=== PATIENT | female | born 2000 | race Two or more races ===

== ENCOUNTER 2019-11-22 03:02 | Emergency (ER) | payer OTHER ==
[2019-11-22] MEDS ORDERED: DIPHENHYDRAMINE HCL 25 MG CAPSULE PO ONE (04:33)
[2019-11-22] MEDS ORDERED: PROMETHAZINE HCL 25 MG TABLET PO ONE (04:33)
--- NOTE | 2019-11-22 04:49 | ER Document Report ---
ED General - General Chief Complaint: Headache Stated Complaint: NAUSEA/VOMITING/FEVER Time Seen by Provider: 11/22/19 04:04 Primary Care Provider: [facility] [Provider Group] - Follow up tomorrow TAHIR ALLEN DO [Primary Care Provider] - Follow up as needed Mode of Arrival: Ambulatory Information source: Patient Notes: Patient presents complaining of numerous complaints that she has been having off and on for the past 2 years. Patient states she got tired of her symptoms and feels like her primary doctor is not addressing them. [place] is [place] Patient complains of headache, nausea,, urinary frequency. Patient states she gets frequent UTIs as well as frequent yeast infections. Patient states that she has had some chest pressure. Patient denies any cough or cold symptoms. Patient reports headache pain as well that she has had for several months. Patient states that she has seen a obstetrics/gynecology nurse and had a heart monitor placed. Patient states she has gone to the communication center operator for evaluation of her frequent UTIs and yeast infections. Patient also states that she is had a brain MRI in June of this year for her headaches. Patient states that whenever she sees her doctor although I tell her is that she has depression but patient disagrees with this. Patient is not currently on any medications at this time. Whenever patient was asked what symptoms prompted her visit tonight patient states that she does not feel like her doctor is addressing her issues. TRAVEL OUTSIDE OF THE [place] IN LAST 30 DAYS: No - HPI Onset: Other - 2 years Onset/Duration: Persistent Quality of pain: Achy Pain Level: 4 Associated symptoms: Chest pain, Headache. denies: Nonproductive cough, Productive cough, Fever, Sore throat Exacerbated by: Denies Relieved by: Denies Similar symptoms previously: Yes Recently seen / treated by doctor: No - Related Data Allergies/Adverse Reactions: No Known Allergies Allergy (Verified 11/22/19 04:08) Past Medical History - General Information source: Patient - Social History Smoking Status: Never Smoker Chew tobacco use (# tins/day): No Frequency of alcohol use: None Drug Abuse: None Occupation: Active duty Lives with: Spouse/Significant other Family History: Reviewed & Not Pertinent Psychiatric Medical History: Reports: Hx Depression Past Surgical History: Reports: Hx Orthopedic Surgery Review of Systems - Review of Systems Constitutional: No symptoms reported EENT: No symptoms reported Cardiovascular: Chest pain. denies: Palpitations Respiratory: No symptoms reported. denies: Cough, Short of breath Gastrointestinal: Nausea. denies: Abdominal pain, Vomiting Genitourinary: Frequency Female Genitourinary: No symptoms reported Musculoskeletal: No symptoms reported Skin: No symptoms reported Hematologic/Lymphatic: No symptoms reported Neurological/Psychological: Headaches. denies: Weakness Physical Exam - Vital signs Vitals: Temp Pulse Resp BP Pulse Ox 97.9 F 65 17 103/62 100 11/22/19 04:32 11/22/19 04:32 11/22/19 04:32 11/22/19 04:32 11/22/19 04:32 - General General appearance: Appears well, Alert In distress: None - HEENT Head: Normocephalic, Atraumatic Eyes: Normal Conjunctiva: Normal Nasal: Normal Mouth/Lips: Normal Neck: Normal, Supple. No: Meningismus - Respiratory Respiratory status: No respiratory distress Chest status: Tender Breath sounds: Normal Chest palpation: Tender - Cardiovascular Rhythm: Regular Heart sounds: S1 appreciated, S2 appreciated Murmur: No - Abdominal Inspection: Normal Distension: No distension Bowel sounds: Normal Tenderness: Nontender Organomegaly: No organomegaly - Back Back: Normal, Nontender. No: CVA tenderness - Extremities General upper extremity: Normal inspection, Normal ROM General lower extremity: Normal inspection, Normal ROM - Neurological Neuro grossly intact: Yes Cognition: Normal Karthikeyan Coma Scale Eye Opening: Spontaneous [place] Coma Scale Verbal: Oriented Karthikeyan Coma Scale Motor: Obeys Commands [place] Coma Scale Total: 15 - Psychological Associated symptoms: Normal affect, Normal mood - Skin Skin Temperature: Warm Skin Moisture: Dry Skin Color: Normal Course - Re-evaluation Re-evalutation: 11/22/19 06:45 Patient with out any acute findings on her diagnostic evaluation aside from nitrite positive urinalysis. Will culture urine and start patient on antibiotic given the fact that she does have some urinary frequency symptoms. Patient reports headache pain and nausea are improved at this time. Patient encouraged to see her primary doctor for recheck and for any referrals to specialist for second opinions. The patient presents with headache without signs of BOILER CLEANER bleed, stroke, infection, or other serious etiology. The patient is neurologically intact. Given the extremely low risk of these diagnoses further testing and evaluation for these possibilities does not appear to be indicated at this time. The patient has been instructed to return if the symptoms worsen or change in any way. - Vital Signs Vital signs: Temp Pulse Resp BP Pulse Ox 98.0 F 64 17 118/78 98 11/22/19 06:47 11/22/19 06:47 11/22/19 06:47 11/22/19 06:47 11/22/19 06:47 - Laboratory Result Diagrams: 11/22/19 04:55 11/22/19 04:55 Laboratory results interpreted by me: 11/22/19 11/22/19 04:55 04:55 Sodium 135.8 L Urine Protein 30 H Urine Nitrite POSITIVE H Urine Urobilinogen 4.0 H Labs- All tests 24 hr 11/22/19 11/22/19 11/22/19 04:55 04:55 04:55 WBC 8.0 RBC 4.23 Hgb 13.1 Hct 38.5 MCV 91 MCH 31.0 MCHC 34.0 RDW 12.7 Plt Count 233 Lymph % (Auto) 24.1 [place] % (Auto) 6.7 Eos % (Auto) 1.7 Baso % (Auto) 0.7 Absolute Neuts (auto) 5.3 Absolute Lymphs (auto) 1.9 Absolute Monos (auto) 0.5 Absolute Eos (auto) 0.1 Absolute Basos (auto) 0.1 Seg Neutrophils % 66.8 Sodium 135.8 L Potassium 4.1 Chloride 105 Carbon Dioxide 25 Anion Gap 6 BUN 14 Creatinine 0.94 Est GFR ( Amer) > 60 Est GFR (MDRD) Non-Af > 60 Glucose 90 Calcium 9.1 Total Bilirubin 0.4 Direct Bilirubin 0.0 Neonat Total Bilirubin Not Reportable Neonat Direct Bilirubin Not Reportable Neonat Indirect Bili Not Reportable AST 16 ALT 10 Alkaline Phosphatase 52 Total Protein 6.9 Albumin 4.2 TSH Serum HCG, Qual NEGATIVE Urine Color Urine Appearance Urine pH Ur Specific [place] Urine Protein Urine Glucose (UA) Urine Ketones Urine Blood Urine Nitrite Urine Bilirubin Urine Urobilinogen Ur Leukocyte Esterase Urine WBC (Auto) Urine RBC (Auto) Urine Bacteria (Auto) Squamous Epi Cells Auto Urine Mucus (Auto) Urine Ascorbic Acid 11/22/19 11/22/19 04:55 04:55 WBC RBC Hgb Hct MCV MCH MCHC RDW Plt Count Lymph % (Auto) [place] % (Auto) Eos % (Auto) Baso % (Auto) Absolute Neuts (auto) Absolute Lymphs (auto) Absolute Monos (auto) Absolute Eos (auto) Absolute Basos (auto) Seg Neutrophils % Sodium Potassium Chloride Carbon Dioxide Anion Gap BUN Creatinine Est GFR ( Amer) Est GFR (MDRD) Non-Af Glucose Calcium Total Bilirubin Direct Bilirubin Neonat Total Bilirubin Neonat Direct Bilirubin Neonat Indirect Bili AST ALT Alkaline Phosphatase Total Protein Albumin TSH 2.08 Serum HCG, Qual Urine Color YELLOW Urine Appearance SLIGHTLY-CLOUDY Urine pH 7.0 Ur Specific [place] 1.027 Urine Protein 30 H Urine Glucose (UA) NEGATIVE Urine Ketones NEGATIVE Urine Blood NEGATIVE Urine Nitrite POSITIVE H Urine Bilirubin NEGATIVE Urine Urobilinogen 4.0 H Ur Leukocyte Esterase NEGATIVE Urine WBC (Auto) 6 Urine RBC (Auto) 0 Urine Bacteria (Auto) TRACE Squamous Epi Cells Auto <1 Urine Mucus (Auto) MANY Urine Ascorbic Acid NEGATIVE - EKG Interpretation by Me EKG shows normal: Sinus rhythm Rate: Normal Additional EKG results interpreted by me: 11/22/19 06:09 Sinus rhythm with rate of 52, QTc 406, no acute ischemic changes Discharge - Discharge Clinical Impression: Nausea UTI (urinary tract infection) Qualifiers: Urinary tract infection type: site unspecified Hematuria presence: without hematuria Qualified Code(s): N39.0 - Urinary tract infection, site not specified Headache Qualifiers: Headache type: unspecified Headache chronicity pattern: chronic headache Intractability: not intractable Qualified Code(s): R51 - Headache Chest pain Qualifiers: Chest pain type: unspecified Qualified Code(s): R07.9 - Chest pain, unspecified Condition: Stable Disposition: HOME, SELF-CARE Instructions: Antinausea Medication ([facility]), Cephalexin ([facility]), Chest Pain of Unclear Cause ([facility]), Headache ([facility]), Urinary Anesthetic Agent ([facility]), Urinary Tract Infection ([facility]) Additional Instructions: Return immediately for any new or worsening symptoms Followup with your primary care provider, call tomorrow to make a followup appointment Prescriptions: Cephalexin Monohydrate [Keflex 500 mg Capsule] 500 mg PO BID 5 Days #10 capsule Promethazine HCl [Phenergan 25 mg Tablet] 25 mg PO Q6H PRN #10 tablet PRN Reason: Phenazopyridine HCl [Pyridium 200 mg Tablet] 200 mg PO TID #15 tablet Referrals: TAHIR ALLEN DO [Primary Care Provider] - Follow up as needed [facility] [Provider Group] - Follow up tomorrow
[2019-11-22 05:11] LABS: ABSOLUTE BASOPHILS # (AUTO) 0.1 10^3/uL (0.0-0.2); ABSOLUTE EOSINOPHILS # (AUTO) 0.1 10^3/uL (0.0-0.6); ABSOLUTE LYMPHOCYTES (AUTO) 1.9 10^3/uL (0.5-4.7); ABSOLUTE MONOCYTES (AUTO) 0.5 10^3/uL (0.1-1.4); ABSOLUTE NEUT (AUTO) 5.3 10^3/uL (1.7-8.2); BASOPHILS % (AUTO) 0.7 % (0-2); EOSINOPHILS % (AUTO) 1.7 % (0-6); HEMATOCRIT 38.5 % (36.0-47.0); HEMOGLOBIN 13.1 g/dL (12.0-15.5); LYMPHOCYTES % (AUTO) 24.1 % (13-45); MEAN CORPUSCULAR VOLUME 91 fl (80-97); MONOCYTES % (AUTO) 6.7 % (3-13); PLATELET COUNT 233 10^3/uL (150-450); RED BLOOD COUNT 4.23 10^6/uL (3.72-5.28); RED CELL DISTRIBUTION WIDTH 12.7 % (11.5-14.0); SEGMENTED NEUTROPHILS % (AUTO) 66.8 % (42-78); TOTAL CELLS COUNTED % (AUTO) 100 %
[2019-11-22 05:22] LABS: APPEARANCE,URINE SLIGHTLY-CLOUDY; BILIRUBIN,URINE NEGATIVE (NEGATIVE); COLOR,URINE YELLOW; GLUCOSE, URINE NEGATIVE (NEGATIVE); KETONES,URINE NEGATIVE (NEGATIVE); LEUKOCYTE ESTERASE,URINE NEGATIVE (NEGATIVE); NITRITE,URINE POSITIVE (NEGATIVE); PROTEIN,URINE 30 mg/dL (NEGATIVE); URINE SPECIFIC GRAVITY 1.027
--- NOTE | 2019-11-22 05:22 | RADIOLOGY REPORT (SQ) ---
CLINICAL HISTORY: cp COMPARISON: None. TECHNIQUE: XR CHEST 1 VIEW 11/22/2019 4:32 AM CDT FINDINGS: Cardiac silhouette is normal in size. Lungs are clear without consolidation, atelectasis, mass or edema. There is no pleural effusion. There is no pneumothorax. There are no acute osseous findings. IMPRESSION: Clear lungs.
[2019-11-22 05:31] LABS: ALBUMIN 4.2 g/dL (3.5-5.0); ALKALINE PHOSPHATASE 52 U/L (38-126); ANION GAP 6 (5-19); ASPARTATE AMINO TRANSFERASE 16 U/L (14-36); BILIRUBIN,TOTAL 0.4 mg/dL (0.2-1.3); BLOOD UREA NITROGEN 14 mg/dL (7-20); CALCIUM 9.1 mg/dL (8.4-10.2); CARBON DIOXIDE 25 mmol/L (22-30); CHLORIDE 105 mmol/L (98-107); GLUCOSE 90 mg/dL (75-110); POTASSIUM 4.1 mmol/L (3.6-5.0); TOTAL PROTEIN 6.9 g/dL (6.3-8.2)
[2019-11-22] MEDS ORDERED: PHENAZOPYRIDINE HCL 200 MG TABLET PO ONE (06:12)
[2019-11-22] MEDS ORDERED: CEPHALEXIN 500 MG CAPSULE PO ONE (06:12)
[2019-11-22 06:39] LABS: CHLAM PCR NOT DETECTED (NOT DETECT)
[2019-11-22 06:48] VITALS: BP 118/78
--- NOTE | 2019-11-22 08:24 | EKG REPORT ---
SEVERITY:- NORMAL ECG - SINUS RHYTHM : Confirmed by: Dina Pascual MD 22-Nov-2019 08:22:44
== END 2019-11-22 06:49 | disposition home or self-care (01) ==
LOC: ER 03:02
DX: N39.0 Urinary tract infection, site not specified (principal); R51 Headache; R07.9 Chest pain, unspecified; R11.2 Nausea with vomiting, unspecified; R50.9 Fever, unspecified; Z87.440 Personal history of urinary (tract) infections
CPT/HCPCS: 93005; 99284; 36415; 87086; 84443; 84703; 85025; 87088; 80053; 81001; 87186; 87491; 87591; 71045; 93010; J3490